=== PATIENT | male | born 1955 | race Caucasian/White ===

== ENCOUNTER 2021-04-04 11:25 | Emergency (ER) | payer OTHER ==
[~2021-04-04] VITALS: Ht 177.8 cm; Wt 111.1 kg
[2021-04-04] MEDS ORDERED: AMLODIPINE BESYL5 MG PO (11:48)
[2021-04-04] MEDS ORDERED: ASPIRIN ADULT L81 M1 PO (11:48)
[2021-04-04] MEDS ORDERED: IBUPROFEN600 MG PO (14:16)
[2021-04-04] MEDS ORDERED: HYDROCODONE-AC1 EAC1 PO (14:16)
== END 2021-04-04 14:24 | disposition home or self-care (01) ==
LOC: ED 11:25
DX: S83.91XA Sprain of unspecified site of right knee, initial encounter (principal); Z79.899 Other long term (current) drug therapy; Z79.82 Long term (current) use of aspirin; W01.0XXA Fall on same level from slipping, tripping and stumbling without subsequent striking against object, initial encounter; Y93.89 Activity, other specified; Y92.89 Other specified places as the place of occurrence of the external cause; Y99.8 Other external cause status

== ENCOUNTER 2023-06-16 16:46 | Emergency (ER) | payer OTHER ==
[~2023-06-16] VITALS: Ht 177.8 cm; Wt 104.3 kg
[~2023-06-16 16:46] MED LIST: AMLODIPINE BESYL5 MG PO; ASPIRIN ADULT L81 M1 PO; HYDROCODONE-AC1 EAC1 PO; IBUPROFEN600 MG PO
== END 2023-06-16 19:37 | disposition home or self-care (01) ==
LOC: ED 16:46
DX: S01.01XA Laceration without foreign body of scalp, initial encounter (principal); S09.90XA Unspecified injury of head, initial encounter; I10 Essential (primary) hypertension; W01.10XA Fall on same level from slipping, tripping and stumbling with subsequent striking against unspecified object, initial encounter; Y93.89 Activity, other specified; Y92.89 Other specified places as the place of occurrence of the external cause; Y99.0 Civilian activity done for income or pay